=== PATIENT | female | born 1970 | race Caucasian/White ===

== ENCOUNTER 2017-12-05 12:38 | Emergency (ER) | payer MEDICAID ==
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
--- NOTE | 2017-12-05 14:58 | Diagnostic Imaging Report ---
Left RIBS (3 views) HISTORY: Pain, trauma No definite acute bony abnormalities. No definite fractures are seen. No acute pulmonary parenchymal or pleural abnormalities. IMPRESSION: 1. No acute abnormalities
== END 2017-12-05 14:30 | disposition home or self-care (01) ==
LOC: ER 12:38
DX: S20.212A Contusion of left front wall of thorax, initial encounter (principal); Z90.710 Acquired absence of both cervix and uterus; X58.XXXA Exposure to other specified factors, initial encounter; Y93.89 Activity, other specified; Y92.89 Other specified places as the place of occurrence of the external cause; Y99.8 Other external cause status
CPT/HCPCS: 71101-TC-LT; 82948-90; 93005; Z7502